=== PATIENT | female | born 1975 | race Caucasian/White ===

== ENCOUNTER 2021-07-24 05:32 | Emergency (ER) | payer OTHER ==
[2021-07-24 06:39] LABS: BASOPHIL 0.3 % (0-2); EOSINOPHIL 1.9 % (0-5); HCT 41.4 % (37.0-47.0); HGB 13.8 g/dl (12.5-16.0); LYMPHOCYTE 10.9 % (15-48); MCH 29.4 pg (25.0-31.0); MCHC 33.3 g/dL (32.0-36.0); MCV 88.3 fL (78.0-100.0); MONOCYTE 6.3 % (0-12); MPV 9.5 fL (6.0-9.5); NEUTROPHIL 79.8 % (41-80); NRBC 0; PLT 423 K/uL (150-400); RBC 4.69 M/uL (4.20-5.40); RDW 12.8 % (11.5-14.0); WBC 15.2 K/uL (4.0-10.5)
[2021-07-24 06:57] LABS: ALBUMIN 3.5 g/dL (3.4-5.0); BILIRUBIN - TOTAL 1.2 mg/dL (0.2-1.0); BUN/CREAT RATIO (CALC) 16.8 RATIO; CREATININE 1.19 mg/dL (0.51-0.95); GLOBULIN (CALCULATION) 3.9 g/dL; TOTAL PROTEIN 7.4 g/dL (6.4-8.2)
[2021-07-24] MEDS ORDERED: PHENERGAN25 M1 PO (07:43)
[2021-07-24] MEDS ORDERED: ONDANSETRON ODT4 MG PO (07:43)
== END 2021-07-24 08:13 | disposition home or self-care (01) ==
LOC: FER 05:32
PROVIDERS: Emergency Medicine
DX: R11.2 Nausea with vomiting, unspecified (principal); K21.9 Gastro-esophageal reflux disease without esophagitis; F17.290 Nicotine dependence, other tobacco product, uncomplicated; Z79.899 Other long term (current) drug therapy
CPT/HCPCS: 36415; 80053; 83690; 85025; J1885; J2405; J7030